=== PATIENT | male | born 1955 | race Caucasian/White ===

== ENCOUNTER 2022-01-22 09:39 | Outpatient (REF) | payer MEDICARE, SELFPAY ==
--- NOTE | ~2022-01-22 | US_ITS ---
EXAMINATION: US RETROPERITONEAL LIMITED (RENAL ONLY) CLINICAL INFORMATION: Unspecified abdominal pain. Personal history of urinary calculi. COMPARISON: None TECHNIQUE: Real-time imaging of the kidneys. FINDINGS: RIGHT KIDNEY: 10.2 x 4.9 x 4.3 cm (SAG x AP x TRV). The kidney is normal in size, contour, and echogenicity. Renal cortical thickness is normal. There 3 stones measuring 3 mm in the midpole, 8 x 5 x 6 mm in the midpole and 4 mm in the midpole. There is mild hydronephrosis. No focal parenchymal lesions. LEFT KIDNEY: 10.4 x 5.4 x 4.3 cm (SAG x AP x TRV). The kidney is normal in size, contour, and echogenicity. Renal cortical thickness is normal. There are multiple at least 6 bones. Largest stone measures 1.9 x 1.1 x 1.8 cm in the midpole and 1.5 x 0.8 x 1.2 cm in the upper pole. There is mild left hydronephrosis. No focal parenchymal lesions. BLADDER: Bilateral ureteral jets are demonstrated. US/US renal BI IMPRESSION: Multiple bilateral renal stones, left greater than right. Mild bilateral hydronephrosis.
== END 2022-01-22 09:40 | disposition home or self-care (01) ==
LOC: HO.US 09:39
PROVIDERS: Visit Provider Emergency Medicine
DX: R10.9 Unspecified abdominal pain (principal); Z87.442 Personal history of urinary calculi
CPT/HCPCS: 76775

== ENCOUNTER 2022-02-13 09:27 | Outpatient (REF) | payer MEDICARE, SELFPAY ==
--- NOTE | ~2022-02-13 | MM_ITS ---
EXAMINATION: BONE DENSITOMETRY CLINICAL INDICATION: Age-related physical debility. Male, age 66. COMPARISON: No prior bone densitometry. Current exam is baseline. Comparison made with outside chest radiographs 11/02/2019 and outside lumbar spine 11/02/2019. TECHNIQUE: Using a [employer] DXA System (software version: 13.1) manufactured by [employer], dual-energy x-ray absorptiometry was performed of the lumbar spine and left hip. The images are of good technical quality. Summary results are attached. FINDINGS: AP SPINE L2-L3 (excluding L1 and L4): The data of L1-L4 has been changed to exclude the L1 and L4 vertebral bodies because of vertebral compressions at these levels which may cause overestimation of the lumbar bone mineral density. BMD 0.636 g/cm2, Z-score -3.9, T-score -5.0, osteoporosis. LEFT FEMUR, NECK: BMD 0.621 g/cm2, Z-score -1.9, T-score -3.5, osteoporosis. LEFT FEMUR, TOTAL: BMD 0.702 g/cm2, Z-score -1.8, T-score -2.8, osteoporosis. IDENTIFIED RISK FACTORS: History of adult fracture thoracic and lumbar spine. Osteoporosis. Current smoker. Height loss. Low body weight. Anticonvulsants. HISTORY OF FRACTURE: Compression fractures lower thoracic spine. Superior endplate depressions L1 and L4. MEDICATIONS: Bisphosphonates. MM/XR DEXA axial skeleton IMPRESSION: 1. DIAGNOSIS: Severe osteoporosis based on the lowest T-score value of -5.0 in the lumbar spine and the prior history of fracture applying World Health Organization criteria. 2. 10-YEAR FRACTURE RISK PREDICTION, FRAX: According to the guidelines, FRAX calculation should only be performed on patients in the osteopenia bone density category.?Therefore, FRAX was not performed on this patient.? 3. Treatment Recommendations: NOF guidelines recommend consideration for treatment in postmenopausal women and men age 50 and older presenting with the following: -A hip or vertebral (clinical or morphometric) fracture. -T-score less than or equal to -2.5 at the femoral neck or spine after appropriate evaluation to exclude secondary causes. -Low bone mass at the hip or spine and a 10-year fracture probability by FRAX of greater than or equal to 3% for hip fracture or greater than or equal to 20% for major osteoporotic fracture based on the [place] adapted WHO algorithm. 4. Other Recommendations: All treatment decisions require clinical judgment and consideration of individual patient factors, including patient preferences, comorbidities, previous drug use, risk factors not captured in the FRAX model (e.g. frailty, falls, vitamin D deficiency, increased bone turnover, interval significant decline in bone density) and possible under or overestimation of fracture risk by FRAX. Additional medical evaluation for secondary cause of low bone mineral density may be appropriate. FUTURE SCAN RECOMMENDATION: People with diagnosed cases of osteoporosis or at high risk for fracture should have regular bone mineral density tests. For patients eligible for Medicare, routine testing is allowed once every 2 years. The testing frequency can be increased to one year for patients who have rapidly progressing disease, those who are receiving or discontinuing medical therapy to restore bone mass, or have additional risk factors.
== END 2022-02-13 09:28 | disposition home or self-care (01) ==
LOC: HO.MAMMO 09:27
PROVIDERS: Visit Provider Registered Nurse
DX: Z13.820 Encounter for screening for osteoporosis (principal); M81.0 Age-related osteoporosis without current pathological fracture; R54 Age-related physical debility; Z87.81 Personal history of (healed) traumatic fracture; Z79.899 Other long term (current) drug therapy
CPT/HCPCS: 77080

== ENCOUNTER → 2022-03-25 10:25 | Outpatient (BNVA) | payer MEDICARE, SELFPAY | PROVIDERS: PCP Registered Nurse; Visit Provider Surgery Vascular Surgery | DX: I73.9 Peripheral vascular disease, unspecified (principal); I82.409 Acute embolism and thrombosis of unspecified deep veins of unspecified lower extremity | CPT/HCPCS: 99202 ==

== ENCOUNTER → 2022-03-27 12:26 | Outpatient (BNVA) | payer MEDICARE, SELFPAY | PROVIDERS: PCP Registered Nurse; Visit Provider Internal Medicine Endocrinology, Diabetes & Metabolism | DX: M81.0 Age-related osteoporosis without current pathological fracture (principal) | CPT/HCPCS: 99202 ==

== ENCOUNTER 2022-03-29 01:00 | Emergency (ER) | payer MEDICARE, SELFPAY ==
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
[2022-03-29 01:09] VITALS: BP 140/73; PULSE 88; RESP 16; TEMP 36.5; O2SAT 96; BMI 19.8
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
[2022-03-29 01:21] LABS: MANUAL DIFF FLAG NO
[2022-03-29 01:25] LABS: Basophils Percent Auto 0.5 % (0-2); Eosinophils Absolute Auto 0.1 X10*3/uL (0.0-0.4); Eosinophils Percent Auto 1.6 % (0-4); Hematocrit 37.1 % (42.0-52.0); Hemoglobin 12.4 g/dl (14.0-18.0); Imm Gran Abs Auto 0.02 X10*3/uL (0.00-0.03); Imm Gran Pct Auto 0.3 % (0.0-0.4); Lymphocytes Absolute Auto 2.5 X10*3/uL (1.2-4.9); Lymphocytes Percent Auto 41.1 % (20-40); Mean Corpuscular HGB Conc 33.4 g/dl (31.0-36.0); Mean Corpuscular Hemoglobin 31.6 pg (27.0-33.0); Mean Corpuscular Volume 94.4 fL (80.0-98.0); Mean Platelet Volume 8.5 fL (9.4-12.4); Monocytes Absolute Auto 0.6 X10*3/uL (0.1-1.2); Monocytes Percent Auto 9.5 % (2-11); Neutrophils Absolute Auto 2.9 x10*3/uL (2.0-8.3); Platelet Count 157 X10*3/uL (160-400); Red Blood Count 3.93 X10*6/uL (4.60-5.80); Red Cell Distribution Width 13.2 % (11.0-16.0); White Blood Count 6.1 X10*3/uL (4.8-10.8)
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
[2022-03-29 01:46] LABS: Alanine Aminotransferase 11 U/L (0-40); Alkaline Phosphatase 61 U/L (39-117); Anion Gap 13 (12-20); Aspartate Amino Transferase 16 U/L (5-37); Bilirubin Total 0.3 mg/dL (0.0-1.0); Blood Urea Nitrogen 11 mg/dL (9-16); Calcium 9.2 mg/dL (8.4-10.2); Carbon Dioxide 26 mmol/L (22-29); Chloride 106 mmol/L (96-108); Estimated Glomerular Filt Rate 60; Ethanol 156 mg/dL; Glucose Random 69 mg/dL (60-115); Potassium 3.2 mmol/L (3.3-5.1); Sodium 142 mmol/L (135-145); Total Protein 6.3 g/dL (6.5-8.0)
[2022-03-29] MEDS: Oxymetazoline HCl 0.05 % Nasal 15 ML SPRAY 2 SPRAY NOSTRIL-B (01:47)
[2022-03-29 01:58] VITALS: BP 109/59; PULSE 85; RESP 17; TEMP 36.6; O2SAT 95
[2022-03-29] MEDS: Potassium Chloride Packet 20 MEQ PACKET PO (03:33)
== END 2022-03-29 06:52 | disposition home or self-care (01) ==
PROVIDERS: Emergency Provider Emergency Medicine
DX: S02.40EA Zygomatic fracture, right side, initial encounter for closed fracture (principal); S02.31XA Fracture of orbital floor, right side, initial encounter for closed fracture; S01.81XA Laceration without foreign body of other part of head, initial encounter; S01.21XA Laceration without foreign body of nose, initial encounter; Y04.2XXA Assault by strike against or bumped into by another person, initial encounter; R04.0 Epistaxis; E78.5 Hyperlipidemia, unspecified; F10.10 Alcohol abuse, uncomplicated; Y90.6 Blood alcohol level of 120-199 mg/100 ml; F17.210 Nicotine dependence, cigarettes, uncomplicated; Y93.9 Activity, unspecified; Y92.414 Local residential or business street as the place of occurrence of the external cause; Y99.9 Unspecified external cause status; Z86.718 Personal history of other venous thrombosis and embolism; Z79.01 Long term (current) use of anticoagulants; Z79.02 Long term (current) use of antithrombotics/antiplatelets; Z79.899 Other long term (current) drug therapy
CPT/HCPCS: 12013; 36415; 70450; 70486; 80053; 82077; 85025; 99283; 99284

== ENCOUNTER 2022-04-08 10:09 | Emergency (ER) | payer MEDICARE, SELFPAY ==
[2022-04-08 10:11] VITALS: BP 170/91; PULSE 108; RESP 18; TEMP 36.1; O2SAT 99; BMI 20.3
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
== END 2022-04-08 10:37 | disposition home or self-care (01) ==
PROVIDERS: Emergency Provider Emergency Medicine; PCP Registered Nurse
DX: Z48.02 Encounter for removal of sutures (principal); Z79.899 Other long term (current) drug therapy; F17.210 Nicotine dependence, cigarettes, uncomplicated; Z71.6 Tobacco abuse counseling
CPT/HCPCS: 99282; 99283

== ENCOUNTER 2022-06-20 09:56 | Outpatient (REF) | payer MEDICARE, SELFPAY ==
[2022-06-20 16:41] LABS: Urine Cytology See Pathology rpt
== END 2022-06-20 09:57 | disposition home or self-care (01) ==
LOC: HO.LAB 09:56
PROVIDERS: PCP Registered Nurse; Visit Provider Nurse Practitioner Family
DX: R31.29 Other microscopic hematuria (principal); N20.0 Calculus of kidney
CPT/HCPCS: 88112; 99202

== ENCOUNTER 2022-07-05 09:24 | Outpatient (REF) | payer MEDICARE, SELFPAY ==
[2022-07-05 12:07] LABS: Blood Urea Nitrogen 13 mg/dL (9-16); Estimated Glomerular Filt Rate 59
== END 2022-07-05 09:25 | disposition home or self-care (01) ==
LOC: HO.HMGCLDS 09:24
PROVIDERS: PCP Registered Nurse; Visit Provider Nurse Practitioner Family
DX: R39.15 Urgency of urination (principal)
CPT/HCPCS: 36415; 82565; 84520

== ENCOUNTER 2022-07-08 09:45 | Outpatient (REF) | payer MEDICARE, SELFPAY ==
--- NOTE | ~2022-07-08 | CT_ITS ---
EXAMINATION: CT ABDOMEN AND PELVIS WITHOUT AND WITH CONTRAST CLINICAL INFORMATION: R31.29 - Other microscopic hematuria COMPARISON: Renal ultrasound 01/22/2022 TECHNIQUE: Noncontrast CT of the abdomen and pelvis is performed followed by split bolus contrast-enhanced images using 85 mL Omnipaque 350 contrast.? Postcontrast imaging is performed during the combined nephrogram and excretion phase. Sagittal and coronal reformatted images were obtained on the technologist's workstation for both the precontrast and postcontrast phases. This CT examination was performed using dose optimization techniques as appropriate, variously including the following: *Automated exposure control *Adjustment of mA and/or kV according to patient size (this includes techniques or standardized protocols for targeted exams where dose is matched to indication/reason for exam; i.e. extremities or head) *Use of iterative reconstruction technique DLP: 103 mGy-cm FINDINGS: LUNG BASES: The visualized lung bases are unremarkable. LIVER, GALLBLADDER, AND BILIARY TREE: Normal in size and smooth in contour. Macrolobulated circumscribed cyst anterior left lobe 4.1 x 3.4 cm, water attenuation, 4HU. Tiny adjacent satellite cyst. No suspicious hepatic parenchymal lesion or intrahepatic ductal dilatation. The gallbladder is unremarkable with no evidence of radiopaque gallstones, gallbladder wall thickening, or obvious pericholecystic inflammatory changes. PANCREAS: Unremarkable. SPLEEN: Unremarkable. ADRENAL GLANDS: Unremarkable. KIDNEYS AND URETERS: The kidneys are normal in size and enhance symmetrically. There is no hydronephrosis, hydroureter, or perinephric stranding. No renal parenchymal lesion. No mucosal thickening or visible ureteral filling defect. Left kidney has multiple calculi, the largest is in the renal pelvis 2.0 x 1.1 cm, 1595 HU attenuation, and 6.5 cm from the flank. The next largest calculus is left upper pole, 1.3 cm. No ureteral calculi. Right kidney has 3 calculi, largest interpolar, 0.8 cm, 1424HU attenuation and 6.5 cm from the flank. No ureteral calculi. BLADDER: Unremarkable. GASTROINTESTINAL TRACT: No bowel obstruction or focal inflammatory changes in bowel or mesentery. No ascites or fluid collection. ABDOMINAL WALL: No significant hernia is appreciated. LYMPH NODES: No lymphadenopathy. VASCULAR: Extensive atherosclerotic calcifications aorta and iliac arteries and the splenic artery. The infrarenal abdominal aorta measures up to 3.0 cm in diameter. There is a intraluminal linear calcification at level L2-L3 which may suggest chronic occult dissection (series , sagittal series ). PELVIC VISCERA: Unremarkable. OSSEUS STRUCTURES: There are multilevel accentuated endplate concavity is throughout the lumbar spine consistent with osteopenia/osteoporosis. No paraspinal soft tissue swelling or destructive process. CT/CT urogram IMPRESSION: 1. Multiple bilateral renal calculi, largest left renal pelvis 2.0 x 1.1 cm. No hydronephrosis, hydroureter, or perinephric stranding. 2. Aneurysmal enlargement abdominal aorta measuring up to 3.0 cm. Intraluminal linear calcification at level L2-L3 which may suggest chronic occult dissection. This may be further assessed with CT angiography. 3. Incidental hepatic cyst 4.1 cm. No suspicious hepatic parenchymal lesion or ductal dilatation. 4. Osteopenia/osteoporosis with multilevel lumbar vertebral endplate concavity/depression. No paraspinal soft tissue swelling or destructive process.
[2022-07-08] MEDS: iohexoL 350 MG/ML 100 ML INFUS..BTL 85 ML IV (10:26)
== END 2022-07-08 09:46 | disposition home or self-care (01) ==
LOC: HO.CT 09:45
PROVIDERS: PCP Registered Nurse; Visit Provider Nurse Practitioner Family
DX: R31.29 Other microscopic hematuria (principal); N20.0 Calculus of kidney
CPT/HCPCS: 74178; Q9967

== ENCOUNTER → 2022-07-11 10:34 | Outpatient (BNVA) | payer MEDICARE, SELFPAY | PROVIDERS: PCP Registered Nurse; Visit Provider Nurse Practitioner Family | DX: R31.29 Other microscopic hematuria (principal); C61 Malignant neoplasm of prostate; N20.0 Calculus of kidney | CPT/HCPCS: 99212 ==

== ENCOUNTER 2022-07-14 09:20 | Outpatient (REF) | payer MEDICARE, SELFPAY ==
[2022-07-14 12:55] LABS: Prostate Specific Antigen 7.56 ng/mL (<0.05-4.0)
== END 2022-07-14 09:21 | disposition home or self-care (01) ==
LOC: HO.HMGCLDS 09:20
PROVIDERS: Visit Provider Nurse Practitioner Family
DX: N40.0 Benign prostatic hyperplasia without lower urinary tract symptoms (principal); Z12.5 Encounter for screening for malignant neoplasm of prostate
CPT/HCPCS: 36415; 84153

== ENCOUNTER → 2022-07-21 08:28 | Outpatient (BNVA) | payer MEDICARE, SELFPAY | PROVIDERS: PCP Registered Nurse; Visit Provider Nurse Practitioner Family | DX: C61 Malignant neoplasm of prostate (principal); N20.0 Calculus of kidney; R31.29 Other microscopic hematuria; R97.20 Elevated prostate specific antigen [PSA] | CPT/HCPCS: Q3014 ==

== ENCOUNTER → 2022-08-21 09:48 | Outpatient (BNVA) | payer MEDICARE, SELFPAY | PROVIDERS: PCP Registered Nurse; Visit Provider Nurse Practitioner Family | DX: R97.20 Elevated prostate specific antigen [PSA] (principal) | CPT/HCPCS: 51798; 99212 ==

== ENCOUNTER 2022-09-08 11:26 | Day surgery (SDC) | payer MEDICARE, SELFPAY ==
[2022-09-04 10:20] VITALS: BMI 20.2
--- NOTE | 2022-09-05 14:27 | HO.ANESPROP2 ---
Documented by User: Pamela Regalado NP 09/05/22 14:31 HPI - Anesthesia Eval Consult details Narrative: 67yo M for Left Cystoscopy, Ureteroroscopy, Retro, Laser possible stent, Bladder Biopsy, Prostate Needle Biopsy ETOH abuse PAD on cilostazol Hx of DVT with eliquis, but since d/c'd. [facility] Active Problems Active Problems: All Active Problems (Updated 07/21/22 @ 11:05 by RONDA Boone) Elevated PSA (Acute) Prostate cancer (Acute) BPH (benign prostatic hyperplasia) (Acute) Recurrent nephrolithiasis (Acute) Microhematuria (Acute) Osteoporosis (Acute) DVT (deep venous thrombosis) (Acute) PAD (peripheral artery disease) (Acute) Past Medical History Medical History Alcohol abuse Anxiety Chronic low back pain Hyperlipidemia Osteoporosis Prostate cancer Family History Family History Father Cancer Mother Alzheimer disease Surgical History Surgical History History of surgery Social History Social History Alcohol intake: former Year quit: 2005 Patient Tobacco Use Status: Current everyday Tobacco user Tobacco use type: Cigarette Cigarettes Per Day: 5 Patient Interested in Nicotine Replacement: No Date Education Initiated: 09/08/22 Use of substances other than those prescribed or required for medical reasons: No Advance Directives: No Advance Directives Information Provided: Yes Meds Allergies Allergy/AdvReac Type Severity Reaction Status Date / Time No Known Allergies Allergy Verified 08/21/22 21:21 Home Medications Medication Instructions Recorded Confirmed Last Taken Type clonazepam 1 mg tablet 1 mg PO BEDTIME 03/25/22 09/08/22 Unknown History pravastatin 40 mg tablet 40 mg PO DAILY 03/25/22 09/08/22 Unknown History trazodone 100 mg tablet 100 mg PO BEDTIME 03/25/22 09/08/22 Unknown History cholecalciferol (vitamin D3) 25 25 mcg PO DAILY 06/20/22 09/08/22 Unknown History mcg (1,000 unit) capsule gabapentin 300 mg capsule 100 mg PO BID 06/20/22 09/08/22 Unknown History oxycodone 10 mg tablet 10 mg PO Q6H PRN severe pain 06/20/22 09/08/22 09/08/22 History cilostazol 100 mg tablet 100 mg PO DAILY 07/11/22 09/08/22 Unknown History tamsulosin 0.4 mg capsule 0.4 mg PO DAILY 07/11/22 09/08/22 Unknown History Exam Exam Date and Time: September 05, 2022 1427 Height,Weight and Vital Signs: Height 5 ft 6 in Weight 56.983 kg Assessment and Plan Assessment Anesthesia Assessment: Chart Reviewed Documented by User: Alexei Leonardo MD 09/08/22 15:34 PMF Past Medical History Medical History Alcohol abuse Anxiety Chronic low back pain Hyperlipidemia Osteoporosis Prostate cancer Family History Family History Father Cancer Mother Alzheimer disease Family history of problems with anesthesia: No Surgical History Surgical History History of surgery History of Problems with Anesthesia: No Social History Social History Alcohol intake: former Year quit: 2005 Patient Tobacco Use Status: Current everyday Tobacco user Tobacco use type: Cigarette Cigarettes Per Day: 5 Patient Interested in Nicotine Replacement: No Date Education Initiated: 09/08/22 Use of substances other than those prescribed or required for medical reasons: No Advance Directives: No Advance Directives Information Provided: Yes Meds Allergies Allergy/AdvReac Type Severity Reaction Status Date / Time No Known Allergies Allergy Verified 08/21/22 21:21 Home Medications Medication Instructions Recorded Confirmed Last Taken Type clonazepam 1 mg tablet 1 mg PO BEDTIME 03/25/22 09/08/22 Unknown History pravastatin 40 mg tablet 40 mg PO DAILY 03/25/22 09/08/22 Unknown History trazodone 100 mg tablet 100 mg PO BEDTIME 03/25/22 09/08/22 Unknown History cholecalciferol (vitamin D3) 25 25 mcg PO DAILY 06/20/22 09/08/22 Unknown History mcg (1,000 unit) capsule gabapentin 300 mg capsule 100 mg PO BID 06/20/22 09/08/22 Unknown History oxycodone 10 mg tablet 10 mg PO Q6H PRN severe pain 06/20/22 09/08/22 09/08/22 History cilostazol 100 mg tablet 100 mg PO DAILY 07/11/22 09/08/22 Unknown History tamsulosin 0.4 mg capsule 0.4 mg PO DAILY 07/11/22 09/08/22 Unknown History Exam Airway Mallampati Class: I TM Dist: >3cm Neck ROM: Full Lungs: ok Other: ok Assessment and Plan Assessment Anesthesia Assessment: Anesthesia Plan Discussed Final Anesthetic Review Family History of Problems with Anesthesia: No History of Problems with Anesthesia: No NPO: Yes ASA Class: II Final Preanesthetic Review: No Changes in Pt Med Stat, Meds/Allgs Chart Reviewed, Consent Obtained/Reviewed and Anes Risks/Benef Reviewed Patient Risk: Intermediate Procedure Risk: Low Anesthetic Plan Anesthetic Plan: GA Disposition: Standard PACU
--- NOTE | ~2022-09-08 | FL_ITS ---
EXAMINATION: XR FLUOROSCOPY WITH IMAGES CLINICAL INFORMATION: Stent, left, urology. COMPARISON: CT urogram 07/08/2022 TECHNIQUE: Fluoroscopy Supervised By: Dr. Wilfrido Nguyen. Fluoroscopy Time: 17 seconds. Cumulative Dose: 3.53 mGy. Images: 4. FINDINGS: There is contrast in the left renal collecting system. There are smooth filling defects overlying upper and lower pole calyces corresponding to the CT exam. There is a catheter overlying left collecting system. No extravasation of contrast. FL/FL guidance in OR IMPRESSION: Fluoroscopy for urologic procedures.
[2022-09-08 12:34] VITALS: BP 148/77; PULSE 80; RESP 18; TEMP 36.3; O2SAT 99; BMI 22.3
[2022-09-08 12:44] LABS: Hematocrit 36.9 % (42.0-52.0); Hemoglobin 12.4 g/dl (14.0-18.0); Mean Corpuscular HGB Conc 33.6 g/dl (31.0-36.0); Mean Corpuscular Hemoglobin 31.6 pg (27.0-33.0); Mean Corpuscular Volume 94.1 fL (80.0-98.0); Mean Platelet Volume 8.6 fL (9.4-12.4); Platelet Count 169 X10*3/uL (160-400); Red Blood Count 3.92 X10*6/uL (4.60-5.80); Red Cell Distribution Width 13.6 % (11.0-16.0); White Blood Count 6.3 X10*3/uL (4.8-10.8)
[2022-09-08] MEDS: Lactated Ringers 1,000 ML 100 ML IVCONT (13:00)
[2022-09-08 13:09] LABS: Anion Gap 12 (12-20); Blood Urea Nitrogen 11 mg/dL (9-16); Calcium 9.4 mg/dL (8.4-10.2); Carbon Dioxide 28 mmol/L (22-29); Chloride 105 mmol/L (96-108); Creatinine Clr Calc Pharmacy 55.8; Estimated Glomerular Filt Rate > 60; Glucose Fasting 92 mg/dL (60-99); Potassium 4.4 mmol/L (3.3-5.1); Sodium 141 mmol/L (135-145)
--- NOTE | 2022-09-08 13:54 | MHC.SHP ---
Pre-Procedural Eval Section A Date of Service: 09/08/22 The patient is an INPATIENT: No Changes since office visit: No Cold of Flu in the past 2 weeks, No New Medical Problems, No Changes in Medication and No Patient answered all questions The History & Physical has been completed within 30 days and I have reviewed it.: Yes Section B Chief Complaint: micro hematuria, prostate bx in OR Details of Present Illness: left renal stones multiple 2 cm, elevated PSA Relevant Family History (Specify if Yes): No Relevant Social History: None Present Medications: see Short Stay Collaborative assessment Medical History: No relevant PMH History of Previous Operations: Relevant previous surgery/procedure and date(s) Allergies: Allergies Allergy/AdvReac Type Severity Reaction Status Date / Time No Known Allergies Allergy Verified 08/21/22 21:21 Review of Systems Sugical H&P ROS: Negative: Constitution, Cardiovascular, Respiratory, Neurological, Psychiatric, Hem-Onc, Allergic/Immunologic, Gastrointestinal, Genitourinary, Musculoskeletal, Integumentary, Endocrine and Eyes/Ears/Nose/Throat Exam Surgical H&P Exam: Normal: HEENT, Normal: Heart, Normal: Lungs, Normal: Extremities, Normal: Abdomen, Normal: Skin and Normal: Neurological Plan Diagnosis/Plan: Unchanged ( cystoscopy, left retrograde, left ureteroscopy with laser lithotripsy, stent placement, prostate biopsy) I have reviewed the history and physical and performed a pertinent physical examination on my patient. No changes have occurred unless specified. Time Spent With Patient Time: Total time managing care of this patient today ____ minutes.
[2022-09-08 18:35] VITALS: BP 162/66; PULSE 77; RESP 17; TEMP 36.2; O2SAT 99
[2022-09-08 18:40] VITALS: BP 154/79; PULSE 81; RESP 16; O2SAT 98
[2022-09-08 18:45] VITALS: BP 137/68; PULSE 83; RESP 16; O2SAT 98
[2022-09-08 18:50] VITALS: BP 117/78; PULSE 79; RESP 16; O2SAT 96
[2022-09-08] MEDS: ondansetron HCL 4 MG/2 ML VIAL IVPUSH (18:52)
[2022-09-08] MEDS: Phenazopyridine HCL 100 MG TABLET PO (19:04)
[2022-09-08 19:05] VITALS: BP 154/70; PULSE 83; RESP 18; TEMP 36.3; O2SAT 96
--- NOTE | 2022-09-24 14:04 | P.OP_ITS ---
Operative Note Operative Note Date of Service: 09/08/22 Narrative: PreOperative Diagnosis: 1. Elevated PSA 2. Left renal stones Post Operative Diagnosis: Elevated PSA, left renal stones Procedure: - cystoscopy, left retrograde - left dilatation of ureteric orifice under fluoroscopy - left ureteroscopy, stone basketing - transrectal ultrasound measurement of prostate - transrectal ultrasound-guided pudendal nerve block - transrectal ultrasound-guided prostate biopsy 12 core Surgeon: Dr Wilfrido Nguyen Anesthesia: General Indications for procedure: Prior imaging with left-sided mild hydronephrosis in question of left stones. Prior left-sided procedures. PSA 7.6. Procedure: After informed consent was verified patient was brought to the operating placed in supine position. Anesthesia was administered per protocol. Patient was placed in modified dorsal lithotomy position and prepped and draped in a sterile fashion. Safety pause time-out and side of surgery confirmed. Antibiotics confirmed. 22 Occitan cystoscope was inserted per urethra. Bladder was normal in its entirety. Both ureteric orifices were in normal position. The left ureteric orifice was cannulated and a retrograde examination was performed. No filling defects seen. A Sensor guidewire was placed up to the level of the renal pelvis under fluoroscopy. The rigid cystoscope was removed and the inner cannula of ureteric access sheath was used under fluoroscopy to dilate the ureteric orifice. The ureteric access sheath was placed and the inner cannula with access wire removed. The digital flexible ureteral scope was placed. The renal pelvis was examined its entirety. Small stone fragments seen. Attempt made stone basketing. At the completion of the stone procedure a Sensor wire was placed back into the renal pelvis. The flexible scope was slowly removed from the renal pelvis. The ureter appeared to have minimal disturbance in a decision was made not to leave a stent.] The bladder was emptied. Attention was directed to the prostate biopsy. TERENCE performed to dilate rectal sphincter Iodine 10cc with Gel was placed per rectum Ultrasound probe was placed per rectum The prostate was measured in 3 dimensions Total volume equals 50 gm No cystic structures were noted No calcifications were noted at the surgical margin The prostate was otherwise [homogeneous] [heterogenous] in nature An ultrasound-guided pudendal nerve block was performed using 10 cc of 1% lidocaine. 8 cc was placed at the base and 2 cc of the apex. A 12 core biopsy was performed with 6 cores each side. Two cores were taken at the apex, mid and base. Cores were spaced between lateral and medial. He tolerated the procedure well. Was transferred in stable condition other cover area. Pathology: 12 core prostate biopsy.
== END 2022-09-08 19:25 | disposition home or self-care (01) ==
PROVIDERS: Nurse Practitioner; PCP Registered Nurse; Visit Provider Urology
PROC: (CPT 55700; principal; 2022-09-08 13:10)
PROC: (CPT 55700; 2022-09-08 13:10)
PROC: (CPT 55700; 2022-09-08 13:10)
DX: R97.20 Elevated prostate specific antigen [PSA] (principal); C61 Malignant neoplasm of prostate; R31.29 Other microscopic hematuria; N13.2 Hydronephrosis with renal and ureteral calculous obstruction; G89.29 Other chronic pain; M54.50 Low back pain, unspecified; F10.10 Alcohol abuse, uncomplicated; I73.9 Peripheral vascular disease, unspecified; E78.5 Hyperlipidemia, unspecified; F41.1 Generalized anxiety disorder; Z86.718 Personal history of other venous thrombosis and embolism; Z79.01 Long term (current) use of anticoagulants; M81.0 Age-related osteoporosis without current pathological fracture; Z79.899 Other long term (current) drug therapy; F17.210 Nicotine dependence, cigarettes, uncomplicated
CPT/HCPCS: 55700; 52352; 36415; 76942; 80048; 85027; 88305; 88342; C1758; C1769; J0131; J1100; J1956; J2405; J3010; Q9967

== ENCOUNTER → 2022-09-16 12:57 | Outpatient (BNVA) | payer MEDICARE, SELFPAY | PROVIDERS: PCP Registered Nurse; Visit Provider Urology | DX: C61 Malignant neoplasm of prostate (principal) | CPT/HCPCS: 99212 ==

== ENCOUNTER → 2022-09-23 10:53 | Outpatient (REF) | payer MEDICARE, SELFPAY ==
--- NOTE | ~2022-09-23 | NM_ITS ---
EXAMINATION: NM BONE SCAN OF THE WHOLE BODY CLINICAL INFORMATION: Malignant neoplasm of prostate. COMPARISON: No previous bone scan or recent radiographs are available for comparison. CT urogram dated 07/08/2022 is available for comparison. TECHNIQUE: Multiple gamma scintillation camera images of the whole body were performed 2.5 hours following the intravenous administration of 21 mCi Tc-99m MDP. FINDINGS: In the head, no significant abnormalities are present. In the thoracic cage and upper extremities, foci of moderately increased activity are present in the posterior medial aspects of the right 11th and 12th ribs. There is an additional moderately intense focus of increased activity in the anterolateral aspect of the right eighth rib there is minimally increased activity in the left acromioclavicular and right sternoclavicular joints. In the spine, a mild thoracolumbar scoliosis with lumbar convexity to the left is noted. There is mildly increased activity in the right right side of L5. In the pelvis, no significant abnormalities are present. In the lower extremities, no significant abnormalities are present. No other definite bony abnormalities are noted. The urinary bladder and faint visualization of both kidneys are noted. NM/NM bone scan whole body IMPRESSION: 1. Prominent nonspecific rib abnormalities are noted described above in the posterior medial aspects of the right 11th and 12th in the anterolateral aspect of the right eighth ribs. While these may be due to recent fractures, metastatic lesions at these sites cannot be entirely ruled out. These may be better characterized with plain radiographs. 2. A few additional minimal mild nonspecific abnormalities are noted as described above and these are all likely arthritic or traumatic in etiology. None of these abnormalities is strongly suspicious for metastatic disease.
== END ==
LOC: HO.NUCMED 10:53
PROVIDERS: PCP Registered Nurse; Visit Provider Urology
DX: C61 Malignant neoplasm of prostate (principal); C79.51 Secondary malignant neoplasm of bone
CPT/HCPCS: 78306; A9503

== ENCOUNTER → 2022-09-30 11:00 | Outpatient (BNVA) | payer MEDICARE, SELFPAY | PROVIDERS: PCP Registered Nurse; Visit Provider Urology | DX: C61 Malignant neoplasm of prostate (principal); R97.20 Elevated prostate specific antigen [PSA] | CPT/HCPCS: 96402; J9217 ==

== ENCOUNTER → 2022-10-17 11:02 | Outpatient (BNVA) | payer MEDICARE, SELFPAY | PROVIDERS: PCP Registered Nurse; Visit Provider Urology | DX: C61 Malignant neoplasm of prostate (principal); M89.9 Disorder of bone, unspecified | CPT/HCPCS: Q3014 ==

== ENCOUNTER 2022-11-03 08:20 | Outpatient (REF) | payer MEDICARE, SELFPAY ==
--- NOTE | ~2022-11-03 | XR_ITS ---
EXAMINATION: XR RIBS, BILATERAL CLINICAL INFORMATION: Prostate cancer. COMPARISON: Nuclear medicine bone scan of 09/23/2022. TECHNIQUE: PA chest and oblique views of bilateral ribs. FINDINGS: Lungs are clear. No consolidation, pneumothorax, or pleural effusion. The cardiomediastinal silhouette and pulmonary vasculature are normal. There is some linear scarring seen within the left upper lobe. There is calcific tendinitis of the left shoulder. Left renal calculus present. Multilevel vertebral body fractures identified. No acute rib fracture is identified. No abnormal lytic or sclerotic lesion is seen. No expansile lesion is noted. XR/XR ribs BI min 4V w CXR1V IMPRESSION: No acute parenchymal disease within the chest. No destructive sclerotic or lytic bony lesion appreciated.
== END 2022-11-03 08:21 | disposition home or self-care (01) ==
LOC: HO.XRAY 08:20
PROVIDERS: Absent Provider Nurse Practitioner Family; PCP Registered Nurse; Visit Provider Urology
DX: M89.9 Disorder of bone, unspecified (principal)
CPT/HCPCS: 71111

== ENCOUNTER → 2022-11-07 08:52 | Outpatient (BNVA) | payer MEDICARE, SELFPAY | PROVIDERS: PCP Registered Nurse; Visit Provider Urology | DX: C61 Malignant neoplasm of prostate (principal); N20.0 Calculus of kidney | CPT/HCPCS: Q3014 ==

== ENCOUNTER 2022-12-15 20:06 | Outpatient (REF) | payer MEDICARE, SELFPAY ==
[2022-12-19 09:43] LABS: Nordiazepam, GCMS Urine NEGATIVE
[2022-12-19 09:44] LABS: Alphahydroxytriazolam, GCMS Ur NEGATIVE; Alprazolam, GCMS Urine NEGATIVE; Lorazepam GCMS Urine NEGATIVE; Oxazepam, GCMS Urine NEGATIVE
[2022-12-19 09:45] LABS: Alphahydroxymidazolam,GCMS Ur NEGATIVE; Flurazepam Metabolite,GCMS Ur NEGATIVE; Temazepam, GCMS Urine NEGATIVE
== END 2022-12-15 20:07 | disposition home or self-care (01) ==
LOC: HO.HHCL 20:06
PROVIDERS: Visit Provider Registered Nurse
DX: F41.9 Anxiety disorder, unspecified (principal); Z79.899 Other long term (current) drug therapy
CPT/HCPCS: 80346

== ENCOUNTER 2023-07-13 08:47 | Outpatient (REF) | payer MEDICARE, SELFPAY ==
[2023-07-13 11:27] LABS: Basophils Percent Auto 0.7 % (0-2); Eosinophils Absolute Auto 0.1 X10*3/uL (0.0-0.4); Eosinophils Percent Auto 2.6 % (0-4); Hemoglobin 12.8 g/dl (14.0-18.0); Imm Gran Abs Auto 0.02 X10*3/uL (0.00-0.03); Imm Gran Pct Auto 0.4 % (0.0-0.4); Lymphocytes Absolute Auto 1.9 X10*3/uL (1.2-4.9); Lymphocytes Percent Auto 35.5 % (20-40); MANUAL DIFF FLAG NO; Mean Corpuscular HGB Conc 32.8 g/dl (31.0-36.0); Mean Corpuscular Hemoglobin 31.8 pg (27.0-33.0); Mean Corpuscular Volume 96.8 fL (80.0-98.0); Mean Platelet Volume 8.9 fL (9.4-12.4); Monocytes Absolute Auto 0.4 X10*3/uL (0.1-1.2); Monocytes Percent Auto 7.5 % (2-11); Neutrophils Absolute Auto 2.9 x10*3/uL (2.0-8.3); Neutrophils Percent Auto 53.3 % (45-73); Platelet Count 165 X10*3/uL (160-400); Red Blood Count 4.03 X10*6/uL (4.60-5.80); Red Cell Distribution Width 13.8 % (11.0-16.0); White Blood Count 5.4 X10*3/uL (4.8-10.8)
[2023-07-13 11:53] LABS: Alanine Aminotransferase 12 U/L (0-40); Albumin Level 4.2 g/dL (3.5-5.0); Alkaline Phosphatase 70 U/L (39-117); Anion Gap 13 (12-20); Aspartate Amino Transferase 18 U/L (5-37); Bilirubin Total 0.5 mg/dL (0.0-1.0); Blood Urea Nitrogen 12 mg/dL (9-16); Calcium 9.5 mg/dL (8.4-10.2); Carbon Dioxide 25 mmol/L (22-29); Chloride 103 mmol/L (96-108); Cholesterol 167 mg/dL (<200); Estimated Glomerular Filt Rate > 60; Glucose Random 101 mg/dL (60-115); HDL Cholesterol 74 mg/dL (>40); LDL Cholesterol Calculated 83 mg/dL (<100); Potassium 4.1 mmol/L (3.3-5.1); Sodium 137 mmol/L (135-145); Total Protein 7.4 g/dL (6.5-8.0); Triglycerides 51 mg/dL (<150)
[2023-07-13 12:12] LABS: Ferritin 55 ng/mL (20-250)
== END 2023-07-13 08:48 | disposition home or self-care (01) ==
LOC: HO.HHCL 08:47
PROVIDERS: Visit Provider Registered Nurse
DX: E78.2 Mixed hyperlipidemia (principal); D50.9 Iron deficiency anemia, unspecified
CPT/HCPCS: 36415; 80053; 80061; 82728; 85025

== ENCOUNTER 2023-10-02 08:43 | Day surgery (SDC) | payer MEDICARE, SELFPAY ==
[2023-09-30 13:51] VITALS: BMI 20.6
--- NOTE | 2023-10-01 10:47 | P.CONAN_ITS ---
Documented by User: Pamela Regalado NP 10/01/23 10:49 HPI - Anesthesia Eval Consult details Narrative: 68yo M for Colonoscopy Hx ETOH abuse Prostate CA PAD on cilostazol PMFSH Active Problems Active Problems: All Active Problems Rib lesion (Acute) Elevated PSA (Acute) BPH (benign prostatic hyperplasia) (Acute) Recurrent nephrolithiasis (Acute) Microhematuria (Acute) DVT (deep venous thrombosis) (Acute) PAD (peripheral artery disease) (Acute) Prostate cancer (Acute) Osteoporosis (Acute) Past Medical History Medical History (Updated 09/30/23 @ 13:43 by Willow Rosas RN) PVD (peripheral vascular disease) DVT (deep venous thrombosis) Spinal stenosis Renal calculi Prostate cancer Alcohol abuse Osteoporosis Anxiety Chronic low back pain Hyperlipidemia Family History Family History Father Cancer Mother Alzheimer disease Family history of problems with anesthesia: No Surgical History Surgical History (Updated 09/30/23 @ 13:43 by Willow Rosas RN) Hx of cystoscopy History of surgery History of Problems with Anesthesia: No Social History Social History (Updated 09/30/23 @ 13:44 by Willow Rosas RN) Alcohol intake: former Year quit: 2005 Patient Tobacco Use Status: Current everyday Tobacco user Tobacco use type: Cigarette Cigarettes Per Day: 5 Patient Interested in Nicotine Replacement: No Are you DNR?: No Advance Directives: No Advance Directives Information Provided: Yes Nutrition Risks: No Nutritional Risk Meds Allergies Allergy/AdvReac Type Severity Reaction Status Date / Time No Known Allergies Allergy Verified 10/02/23 08:56 Home Medications ?Medication ?Instructions ?Recorded ?Confirmed ?Last Taken ?Type clonazepam 1 mg tablet 1 mg PO BEDTIME 03/25/22 09/30/23 Unknown History trazodone 100 mg tablet 100 mg PO BEDTIME 03/25/22 09/30/23 Unknown History cholecalciferol (vitamin D3) 25 25 mcg PO DAILY 06/20/22 09/30/23 Unknown History mcg (1,000 unit) capsule gabapentin 300 mg capsule 100 mg PO BID 06/20/22 09/30/23 Unknown History oxycodone 10 mg tablet 10 mg PO Q6H PRN severe pain 06/20/22 09/30/23 10/02/23 History cilostazol 100 mg tablet 100 mg PO DAILY 07/11/22 09/30/23 09/27/23 History melatonin 5 mg tablet 5 mg PO QPM 11/07/22 09/30/23 Unknown History aspirin 81 mg chewable tablet 1 tab PO QAM 09/30/23 09/30/23 09/27/23 History rosuvastatin 20 mg tablet 20 mg PO BEDTIME 09/30/23 09/30/23 Unknown History tamsulosin 0.4 mg capsule 0.4 mg PO DAILY 09/30/23 09/30/23 Unknown History amlodipine 5 mg tablet 5 mg PO QAM 10/02/23 10/02/23 Unknown History Exam Height,Weight and Vital Signs: Height 5 ft 5 in Weight 56.245 kg Pertinent Lab Results Pertinent Lab Results: Laboratory Tests 07/13/23 08:54 WBC 5.4 Hgb 12.8 L Hct 39.0 L Plt Count 165 Sodium 137 Potassium 4.1 Chloride 103 Carbon Dioxide 25 BUN 12 Creatinine 1.10 Assessment and Plan Assessment Anesthesia Assessment: Chart Reviewed Final Anesthetic Review Family History of Problems with Anesthesia: No History of Problems with Anesthesia: No Documented by User: Lisa Edward MD 10/02/23 09:11 [facility] Past Medical History Medical History (Updated 09/30/23 @ 13:43 by Willow Rosas RN) PVD (peripheral vascular disease) DVT (deep venous thrombosis) Spinal stenosis Renal calculi Prostate cancer Alcohol abuse Osteoporosis Anxiety Chronic low back pain Hyperlipidemia Family History Family History Father Cancer Mother Alzheimer disease Surgical History Surgical History (Updated 09/30/23 @ 13:43 by Willow Rosas RN) Hx of cystoscopy History of surgery Social History Social History (Updated 09/30/23 @ 13:44 by Willow Rosas RN) Alcohol intake: former Year quit: 2005 Patient Tobacco Use Status: Current everyday Tobacco user Tobacco use type: Cigarette Cigarettes Per Day: 5 Patient Interested in Nicotine Replacement: No Are you DNR?: No Advance Directives: No Advance Directives Information Provided: Yes Nutrition Risks: No Nutritional Risk Meds Allergies Allergy/AdvReac Type Severity Reaction Status Date / Time No Known Allergies Allergy Verified 10/02/23 08:56 Home Medications ?Medication ?Instructions ?Recorded ?Confirmed ?Last Taken ?Type clonazepam 1 mg tablet 1 mg PO BEDTIME 03/25/22 09/30/23 Unknown History trazodone 100 mg tablet 100 mg PO BEDTIME 03/25/22 09/30/23 Unknown History cholecalciferol (vitamin D3) 25 25 mcg PO DAILY 06/20/22 09/30/23 Unknown History mcg (1,000 unit) capsule gabapentin 300 mg capsule 100 mg PO BID 06/20/22 09/30/23 Unknown History oxycodone 10 mg tablet 10 mg PO Q6H PRN severe pain 06/20/22 09/30/23 10/02/23 History cilostazol 100 mg tablet 100 mg PO DAILY 07/11/22 09/30/23 09/27/23 History melatonin 5 mg tablet 5 mg PO QPM 11/07/22 09/30/23 Unknown History aspirin 81 mg chewable tablet 1 tab PO QAM 09/30/23 09/30/23 09/27/23 History rosuvastatin 20 mg tablet 20 mg PO BEDTIME 09/30/23 09/30/23 Unknown History tamsulosin 0.4 mg capsule 0.4 mg PO DAILY 09/30/23 09/30/23 Unknown History amlodipine 5 mg tablet 5 mg PO QAM 10/02/23 10/02/23 Unknown History Exam Airway Mallampati Class: I TM Dist: >3cm Neck ROM: Full Assessment and Plan Assessment Anesthesia Assessment: Anesthesia Plan Discussed and Smoking Cess. Discussed Final Anesthetic Review NPO: Yes ASA Class: III Final Preanesthetic Review: No Changes in Pt Med Stat, Meds/Allgs Chart Reviewed, Consent Obtained/Reviewed and Anes Risks/Benef Reviewed Patient Risk: Intermediate Procedure Risk: Low Anesthetic Plan Anesthetic Plan: TIVA Disposition: Standard PACU
[2023-10-02] MEDS: Lactated Ringers 1,000 ML 100 ML IVCONT (09:01)
[2023-10-02 09:05] VITALS: BP 133/76; PULSE 89; RESP 18; TEMP 36.7; O2SAT 99
[2023-10-02 11:17] VITALS: BP 137/71; PULSE 72; RESP 16; TEMP 36.1; O2SAT 99
--- NOTE | 2023-10-02 11:19 | PM.OP ---
Brief Operative Note Date of Service: 10/02/23 Pre-op diagnosis: Screening Post-op diagnosis: other (Polyps) Procedure: Colonoscopy to the cecum and TI with hot snare polypectomy x 2 with placement of 3 Resolution Clips(2 Ultra, 1 regular) on the hepatic flexure site with submucosal ink marking. and placement of 1 Resolution clip on the 60cm site Surgeon: Yomi Tam MD Anesthesia: MAC Was an Senior Windows Systems Engineer used for this Procedure?: No Estimated blood loss (mL): 0 Pathology: other (A. Hepatic flexure polyp B. Polyp at 60cm) Condition: stable Disposition: PACU
[2023-10-02 11:32] VITALS: BP 131/68; PULSE 71; RESP 18; TEMP 36.2; O2SAT 99
--- NOTE | 2023-10-03 02:21 | OP_ITS ---
DATE OF SERVICE: 10/02/2023 SURGEON: Yomi Tam MD INDICATIONS: The patient presents for evaluation of colorectal cancer screening. Full consent obtained from him for this, including risks of bleeding and perforation. PREOPERATIVE DIAGNOSIS: Colorectal cancer screening. POSTOPERATIVE DIAGNOSIS: PROCEDURE PERFORMED: ESTIMATED BLOOD LOSS: COMPLICATIONS: ANESTHESIA: Monitored anesthesia care. ASSISTANTS: SPECIMENS: POSTOPERATIVE DIAGNOSES: Colorectal cancer screening, colon polyps, diverticulosis, and internal hemorrhoids. PROCEDURES PERFORMED: Colonoscopy to the cecum and terminal ileum with hot snare polypectomy x 2 with placement of a total of 4 Resolution Clips, and marking with submucosal ink. DESCRIPTION OF PROCEDURE: The patient was placed in the left lateral decubitus position. The digital rectal exam revealed no abnormalities. The [employer] video pediatric colonoscope was entered into the rectum and advanced easily to the cecum. Once in the cecum I did identify normal-appearing cecal pouch with appendiceal orifice, and a normal-appearing ileocecal valve. The terminal ileum was cannulated and appeared normal. The scope withdrawn back into the colon. The entire cecum and ileocecal valve appeared normal. The scope was then slowly withdrawn assessing all mucosal surfaces carefully. Preparation was excellent. In the region of the hepatic flexure was an approximately 1.5 cm flat, but raised polyp in between some folds. Visualization was difficult at times given its location. However, I was able to remove it with hot snare polypectomy in piecemeal fashion and recover pieces both by withdrawing it on the tip of the scope and by suction. Postpolypectomy there did not appear to be any definitive residual polyp remaining and no bleeding. I did place 2 Ultra Resolution Clips on the polypectomy site, as well as 1 regular Resolution Clip. There was good deployment for all 3 clips with good hemostasis. I did place a submucosal ink, marked adjacent to the polypectomy site on each side. The scope was continued to be withdrawn. At 60 cm was an approximately 1.2 cm polyp, which was somewhat flat, but raised. This was removed by hot snare polypectomy and recovered by withdrawing the polyp on the tip of the scope. I did place a single Ultra Resolution Clip on to the polypectomy site with good deployment and good hemostasis. I did not visualize any other polyps, colitis, nor angiodysplasia. There was a mild amount of sigmoid diverticulosis. In the rectum, scope was retroflexed visualizing internal hemorrhoids, but no other pathology. The rectal mucosa appeared normal. The scope was straightened and withdrawn from the patient. He tolerated the procedure well and was returned to recovery area in stable condition. IMPRESSION: 1. Colon polyps. 2. Diverticulosis. 3. Internal hemorrhoids. PLAN: The results of the pathology will be checked. Given the 2 polyps, particularly the larger one in the hepatic flexure, I would recommend a repeat colonoscopy within 1 year for further followup. If the hepatic flexure polyp shows any worrisome pathology such as high-grade dysplasia or carcinoma, he would then need a sooner followup as well. He was advised to resume his aspirin and cilostazol on Thursday, October 06. He was advised to avoid NSAIDs for long-term. This has been discussed with his sister. MD GENNY Sainz/ELIUD / [id number] MTDD
== END 2023-10-02 11:56 | disposition home or self-care (01) ==
PROVIDERS: PCP Registered Nurse; Visit Provider Internal Medicine
PROC: 0DJD8ZZ Inspection of Lower Intestinal Tract, Via Natural or Artificial Opening Endoscopic (ICD-10-PCS; CPT 45378; principal; 2023-10-02 10:00)
DX: Z12.11 Encounter for screening for malignant neoplasm of colon (principal); D12.6 Benign neoplasm of colon, unspecified; K57.30 Diverticulosis of large intestine without perforation or abscess without bleeding; K64.8 Other hemorrhoids; Z86.718 Personal history of other venous thrombosis and embolism; Z79.82 Long term (current) use of aspirin
CPT/HCPCS: 45385; 45381; 88305; J2704